=== PATIENT | female | born 1975 | race Hispanic/Latino ===

== ENCOUNTER 2022-07-20 19:59 | Emergency (ER) | payer OTHER ==
[~2022-07-20] VITALS: Ht 167.6 cm; Wt 99.8 kg
[2022-07-21] MEDS ORDERED: ULTRAM 50MG50 MG PO (01:13)
[2022-07-21 01:18] VITALS: BP 121/82
== END 2022-07-21 01:19 | disposition home or self-care (01) ==
LOC: ER 20:10
DX: S00.83XA Contusion of other part of head, initial encounter (principal); R07.89 Other chest pain; M79.631 Pain in right forearm; W01.0XXA Fall on same level from slipping, tripping and stumbling without subsequent striking against object, initial encounter; Y93.01 Activity, walking, marching and hiking; Y92.89 Other specified places as the place of occurrence of the external cause
CPT/HCPCS: 70450; 71250; 72125; 81025; 93005; 99284